=== PATIENT | female | born 1965 | race Caucasian/White ===

== ENCOUNTER → 2020-09-10 | Outpatient (CLI) | payer OTHER | LOC: COL.PUL 09:48 | DX: R05 Cough (principal) | CPT/HCPCS: J7674 ==

== ENCOUNTER → 2022-12-02 | Outpatient (CLI) | payer OTHER | LOC: COL.PUL 11-13 13:00 | DX: R05.9 Cough, unspecified (principal) | CPT/HCPCS: J7674 ==